=== PATIENT | female | born 1975 | race Caucasian/White ===

== ENCOUNTER → 2022-09-04 13:00 | Outpatient (BNVA) | payer BC, SELFPAY | PROVIDERS: Visit Provider Obstetrics & Gynecology | DX: N93.9 Abnormal uterine and vaginal bleeding, unspecified (principal) | CPT/HCPCS: 80053; 84443; 85025 ==

== ENCOUNTER → 2022-09-24 11:13 | Outpatient (BNVA) | payer BC, SELFPAY | PROVIDERS: Visit Provider Obstetrics & Gynecology | DX: N93.9 Abnormal uterine and vaginal bleeding, unspecified (principal); N85.4 Malposition of uterus | CPT/HCPCS: 76830 ==

== ENCOUNTER → 2022-10-31 12:49 | Day surgery (SDC) | payer BC, SELFPAY ==
--- NOTE | 2022-10-09 12:11 | SUR.PREOP ---
1210 spoke with [facility] and informed her that this pt took phentermine yesterday,stated she would tell dr Harris and inform pt of this also,will have to reschedule pt
[2022-10-30 13:24] VITALS: BMI 34.7
[2022-10-31] VITALS (11 sets, daily range): BP systolic 88–118; BP diastolic 51–67; PULSE 71–88; RESP 12–18; TEMP 36.2–36.3; O2SAT 95–100
[2022-10-31] MEDS: sodium chloride 0.9% 1,000 ML 30 ML IV (13:16)
--- NOTE | 2022-10-31 13:26 | SUR.PREOP ---
patient has nipple rings that she cannot get out, tape applied. anesthesia notified. 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
--- NOTE | 2022-10-31 13:47 | ANES.PREANE2 ---
Pre-Anesthetic Assessment Height/Weight: Height 1.57 m Weight 86.183 kg Temp Pulse Resp BP Pulse Ox O2 Del Method 97.2 F L 81 18 118/67 95 Room Air 10/31/22 13:08 10/31/22 13:08 10/31/22 13:08 10/31/22 13:08 10/31/22 13:08 10/31/22 13:08 Preop Diagnosis: abnormal uterine bleeding Operation Date: 10/31/22 14:45 Proposed Procedures p Hysteroscopy w/ Myosure Hysteroscopy w/ Myosure with Endometrial Sampling, poss Polypectomy(Not Applicable) - Delfino Harris MD s Poylpectomy(Not Applicable) - Delfino Harris MD Familial anesthetic complications: woke up during egd and tried to remove the scope from her throat, woke up twice during foot surgery, told OR crew to put her to sleep because she was in a lot of pain Was Beta Finn taken within 24 hours: N/A Was Clonidine taken within 24 hours: N/A Last intake: Intake Last Liquid Date 10/30/22 Last Liquid Time 22:00 Last Solid Date 10/30/22 Last Solid Time 22:00 Social Tobacco and No alcohol Exam alert, oriented x 3, clear to auscultation bilaterally and regular rate & rhythm Airway Mallampati: Class I Dentition: chipped Anesthetic Plan ASA status: 2 Anesthesia: General Risk of > 500 ml blood loss (7ml/kg in children): No Medications/Allergies Home Medications Medication Instructions Recorded Confirmed Last Taken Type phentermine 37.5 mg capsule 37.5 mg PO DAILY 09/04/22 10/09/22 10/09/22 History trazodone 150 mg tablet 150 mg PO BEDTIME 09/04/22 10/09/22 10/08/22 History Allergies Allergy/AdvReac Type Severity Reaction Status Date / Time No Known Allergies Allergy Verified 09/04/22 13:11 Current Medications Generic Name Dose Route Start Last Admin Trade Name Freq PRN Reason Stop Dose Admin Sodium Chloride 1,000 mls @ 30 mls/hr 10/31/22 13:00 10/31/22 13:16 Sodium Chloride 0.9% IV 11/01/22 12:59 30 mls/hr .Q24H LUCILLE Administration PFSH Anesthesia Family History (Updated 04/05/23 @ 13:14 by Tiffanie Suggs) Grandfather No problems noted. Grandmother Cancer Colon, Pancreatic Denies family history of Diabetes CAD (coronary artery disease) Chronic kidney disease (CKD) Hypertension Stroke Data Anesthesia Cardiac Studies: No Data to Display
--- NOTE | 2022-10-31 14:23 | W.PM.OPSUD ---
Surgery/Procedure H&P Update DATE OF PROCEDURE: October 31, 2022 DATE H&P PERFORMED: 09/04/22 H&P UPDATE INFORMATION: I have reviewed H&P completed within last 30 days, I have examined patient prior to procedure and No changes to prior documentation PREOP DIAGNOSIS: abnormal uterine bleeding PLANNED PROCEDURE: Operation Date: 10/31/22 14:45 Proposed Procedures p Hysteroscopy w/ Myosure Hysteroscopy w/ Myosure with Endometrial Sampling, poss Polypectomy(Not Applicable) - Delfino Harris MD s Poylpectomy(Not Applicable) - Delfino Harris MD
[2022-10-31] MEDS: fentaNYL 50 mcg/mL INJ 2mL IVP (15:20)
--- NOTE | 2022-11-01 04:25 | PM.OP ---
Operative Report Date of procedure: October 31, 2022 Pre-op diagnosis: Preop Diagnosis abnormal uterine bleeding Post-op diagnosis: same Post-op findings: normal endometrial cavity Minimal endometrial tissue No polyps or fibroids Procedure done: hysteroscopy curettage of uterus Specimens removed/disposition: endometrial tissue Surgeon: Delfino Harris MD Anesthesia: MAC Estimated blood loss (mL): 0 Complications: none Brief History: 47 y.o. with abnormal uterine bleeding Procedure: Informed consent signed. Patient taken to the operating room. Anesthesia induced. Patient was placed in dorsolithotomy position, prepped and draped for hysteroscopy. A bivalve speculum was placed in the vagina. The anterior lip of the cervix was grasped with a sharp-toothed tenaculum. The cervix was serially dilated with Hegar dilators. . A hysteroscope was placed into the endometrial cavity. The endometrial cavity was seen to be normal. There were no polyps or fibroids. There was minimal endometrial tissue. The hysteroscope was then removed. Endometrial curettage was done with a sharp curette. Endometrial tissue was sent to pathology. The sharp-toothed tenaculum was removed. There was no bleeding from the endometrial cavity or cervix. The patient was then placed supine and awakened and taken to the PACU. Postop condition: stable EBL: none Sponge and instruments counts were normal x 2 Complications: none
== END | disposition home or self-care (01) ==
PROVIDERS: PCP Obstetrics & Gynecology; Visit Provider Obstetrics & Gynecology
PROC: 0UDB8ZZ Extraction of Endometrium, Via Natural or Artificial Opening Endoscopic (ICD-10-PCS; CPT 58558; principal; 2022-10-31 14:35)
PROC: (CPT 58558; 2022-10-31 14:35)
DX: N93.9 Abnormal uterine and vaginal bleeding, unspecified (principal)
CPT/HCPCS: 58558; 81025; 88305; J1100; J1885; J2250; J2405; J2704; J3010; J7030

== ENCOUNTER 2022-12-12 13:20 | Observation (INO) | payer BC, SELFPAY ==
[2022-12-11 09:02] VITALS: BMI 34.5
[2022-12-12] VITALS (15 sets, daily range): BP systolic 80–109; BP diastolic 44–61; PULSE 67–89; RESP 11–21; TEMP 36.5–36.8; O2SAT 94–99
[2022-12-12 09:49] LABS: OR HCG Qualitative Urine Negative (Negative)
[2022-12-12] MEDS: sodium chloride 0.9% 1,000 ML 30 ML IV (09:50)
--- NOTE | 2022-12-12 10:06 | ANES.PREANE2 ---
Pre-Anesthetic Assessment Height/Weight: Height 1.57 m Weight 85.729 kg Temp Pulse Resp BP Pulse Ox O2 Del Method 97.8 F 82 18 109/44 97 Room Air 12/12/22 09:35 12/12/22 09:35 12/12/22 09:35 12/12/22 09:35 12/12/22 09:35 12/12/22 09:37 Preop Diagnosis: abnormal uterine bleeding Operation Date: 12/12/22 11:00 Proposed Procedures p Total laparoscopic hysterectomy 11907, possible total abdominal hysterectomy 97275,N93.9,N92.1(Not Applicable) - Delfino Harris MD s Total Abdominal Hysterectomy(Not Applicable) - Delfino Harris MD Familial anesthetic complications: None Was Beta Finn taken within 24 hours: N/A Was Clonidine taken within 24 hours: N/A Last intake: Intake Last Liquid Date 12/11/22 Last Liquid Time 23:15 Last Solid Date 12/11/22 Last Solid Time 23:15 Social Tobacco and No alcohol Exam alert, oriented x 3, clear to auscultation bilaterally and regular rate & rhythm Airway Mallampati: Class I Dentition: chipped Anesthetic Plan ASA status: 2 Anesthesia: General Risk of > 500 ml blood loss (7ml/kg in children): No Medications/Allergies Home Medications Medication Instructions Recorded Confirmed Last Taken Type phentermine 37.5 mg capsule 37.5 mg PO DAILY 09/04/22 12/11/22 10/09/22 History trazodone 150 mg tablet 150 mg PO BEDTIME 09/04/22 12/11/22 12/10/22 History Allergies Allergy/AdvReac Type Severity Reaction Status Date / Time No Known Allergies Allergy Verified 11/06/22 08:23 Current Medications Generic Name Dose Route Start Last Admin Trade Name Freq PRN Reason Stop Dose Admin Sodium Chloride 1,000 mls @ 30 mls/hr 12/12/22 09:30 12/12/22 09:50 Sodium Chloride 0.9% IV 12/13/22 09:29 30 mls/hr .Q24H LUCILLE Administration PFSH Anesthesia Family History Grandfather No problems noted. Grandmother Cancer Colon, Pancreatic Denies family history of Diabetes CAD (coronary artery disease) Chronic kidney disease (CKD) Hypertension Stroke Female Reproductive History Date of last menstrual period: 12/10/22 Data Anesthesia 12/12/22 09:50 12/12/22 09:50 Cardiac Studies: No Data to Display
[2022-12-12 10:07] LABS: Basophils # 0.1 10^3/uL (0.0-0.1); Basophils % 0.7 %; Eosinophils # 0.2 10^3/uL (0.0-0.8); Eosinophils % 2.5 %; Hematocrit 41.4 % (37.0-47.0); Hemoglobin 13.9 g/dL (11.5-15.3); Lymphocytes # 1.7 10^3/uL (0.8-4.8); Lymphocytes % 19.6 %; Mean Corpuscular HGB Conc 33.6 g/dL (30.0-36.0); Mean Corpuscular Hemoglobin 32.3 pg (28.0-34.0); Mean Corpuscular Volume 96.1 fl (81-99); Monocytes # 0.5 10^3/uL (0.2-0.9); Monocytes % 5.8 %; Neutrophils # 6.04 10^3/uL (1.8-7.7); Nucleated Red Blood Cells % 0 %; Platelet Count 271 10^3/cmm (130-400); Red Blood Count 4.31 10^6/uL (4.1-5.3); Red Cell Distribution Width 13.6 % (12.1-15.1); White Blood Count 8.5 10^3/uL (4.0-10.0)
[2022-12-12] MEDS: scopolamine 1.5 Patch 1 PATCH TRANSDERMA (10:29)
[2022-12-12] MEDS: ceFAZolin 2,000 MG in sodium chloride 0.9% (plus) 50 ML 100 MG IV (11:04)
--- NOTE | 2022-12-12 11:04 | W.PM.OPSUD ---
Surgery/Procedure H&P Update DATE OF PROCEDURE: December 12, 2022 DATE H&P PERFORMED: 12/11/22 H&P UPDATE INFORMATION: I have reviewed H&P completed within last 30 days, I have examined patient prior to procedure and No changes to prior documentation PREOP DIAGNOSIS: abnormal uterine bleeding PLANNED PROCEDURE: Operation Date: 12/12/22 11:00 Proposed Procedures p Total laparoscopic hysterectomy 04539, possible total abdominal hysterectomy 84341,N93.9,N92.1(Not Applicable) - Delfino Harris MD s Total Abdominal Hysterectomy(Not Applicable) - Delfino Harris MD
[2022-12-12] MEDS: lidocaine-epi 2% 20 mL INJ INJECTION (12:27)
[2022-12-12] MEDS: HYDROcodone-acetaminophen 5-325 mg Tablet PO ×2 (14:30→20:33)
[2022-12-12] MEDS: phenazopyridine 100 mg Tablet 200 MG PO (14:34)
[2022-12-12] MEDS: hyDROXYzine 25 mg Capsule 50 MG PO (15:23)
[2022-12-12] MEDS: morphine 4 mg/mL SDV 1 mL IVP (15:24)
[2022-12-12] MEDS: ketorolac 30 mg/mL INJ IVP ×2 (17:26→22:52)
[2022-12-12] MEDS: docusate sodium 100 mg Capsule PO (17:26)
[2022-12-12] MEDS: simethicone 80 mg Chew PO (20:35)
[2022-12-12] MEDS: trazodone 150 mg Tablet PO (21:13)
--- NOTE | 2022-12-12 21:50 | P.OP_ITS ---
Operative Report Date of procedure: December 12, 2022 Pre-op diagnosis: Preop Diagnosis abnormal uterine bleeding Post-op diagnosis: same Post-op findings: normal uterus, tubes, and ovaries Procedure done: laparoscopic-assisted vaginal hysterectomy Specimens removed/disposition: uterus Surgeon: Kendrick Ryan MD Family Program Specialist: Delfino Harris MD Anesthesia: General Estimated blood loss (mL): 50 Complications: none Condition: stable Disposition: PACU Brief History: 47 y.o. with abnormal uterine bleeding Procedure: Informed consent obtained. The patient was taken to the operating room where general endotracheal anesthesia was given.? She was placed in dorsolithotomy position with legs in the Femi stirrups.? The patient was prepped and draped in the usual sterile fashion.? A bivalve speculum was placed.? A [employer] uterine manipulator was placed.? A nunez catheter was placed and secured. Attention was then focused to the abdomen.? A 5 mm incision was made in the umbilicus.? A Veress needle was placed into the abdomen.? After confirming entry into the abdomen using the saline drop test, pneumoperitoneum was achieved.? A laparoscope was then placed into the abdominal cavity.? Three other 5 mm incisions were made, one in suprapubic region and two in the left and right lower abdominal quadrants.? Laparoscopic sheaths were placed.? The pelvis was then explored using the laparoscope.? Normal uterus, tubes and ovaries were seen, as were pelvic sidewalls and cul-de-sacs. The Enseal device was used throughout for vessel sealing.? The uteroovarian vessels were doubly sealed and divided.? The incision was carried to the round ligament.? The round ligaments were divided along the midpoint along its course.? On either side, the broad ligaments were developed and the anterior and posterior leaves were incised and divided.? The uterine vessels were divided at the level of the internal cervical os.? Following this, the vaginal approach to the hysterectomy was begun.? This portion of the surgery will be dictated by Dr. Ryan. After the vaginal portion of the hysterectomy,? the pneumoperitoneum was again achieved.? The laparoscope was used to examine the pelvis.? No bleeding was seen.? All instruments were then removed from the abdomen after the pneumoperitoneum was allowed to escape.? The laparoscopic incisions were then re-approximated using 4-O Monocryl and dermabond The patient was then placed supine, awakened, and taken the recovery room Postoperative condition:? stable Complications:?? none EBL:? 50 cc Sponge, needles, and instrument counts correct x two
[2022-12-12] MEDS: dextrose 5%-lactated ringers 1,000 ML 125 ML IV (22:53)
[2022-12-13] MEDS: ketorolac 30 mg/mL INJ IVP (04:54)
[2022-12-13 05:20] LABS: Hematocrit 32.9 % (37.0-47.0); Hemoglobin 10.7 g/dL (11.5-15.3); Mean Corpuscular HGB Conc 32.5 g/dL (30.0-36.0); Mean Corpuscular Hemoglobin 31.7 pg (28.0-34.0); Mean Corpuscular Volume 97.3 fl (81-99); Mean Platelet Volume 11.1 fL (7.4-10.4); Platelet Count 222 10^3/cmm (130-400); Red Blood Count 3.38 10^6/uL (4.1-5.3); Red Cell Distribution Width 13.4 % (12.1-15.1); White Blood Count 11.4 10^3/uL (4.0-10.0)
[2022-12-13 05:22] VITALS: BP 85/80; PULSE 58; RESP 15; TEMP 36.7; O2SAT 96
[2022-12-13] MEDS: ibuprofen 800 mg tablet PO (10:33)
[2022-12-13] MEDS: docusate sodium 100 mg Capsule PO (10:33)
[2022-12-13 10:40] VITALS: BP 85/46; PULSE 87; RESP 15; TEMP 36.6
[2022-12-13] MEDS: simethicone 80 mg Chew PO (10:41)
[2022-12-13] MEDS: HYDROcodone-acetaminophen 5-325 mg Tablet PO (11:51)
[2022-12-13 12:05] VITALS: BP 85/46; PULSE 87; RESP 15; TEMP 36.6
--- NOTE | 2022-12-13 13:10 | PM.OBGYPN ---
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 Lsc wounds clean and dry Ext: normal Urinary Catheter Management: Claros: Cath Placed During This Visit: yes, but has since been removed by the nurse Reason for Continuing Indwelling Catheter: Decision to DC Catheter Urinary Catheter Date of Insertion: 12/12/22 Urinary Catheter Time of Insertion: 11:36 Date Urinary Catheter Removed: 12/12/22 Time Urinary Catheter Discontinued: 15:00 Data 12/13/22 05:11 12/12/22 09:50 A&P Assessment and plan (1) Encounter for postoperative care: Plan POD #1 LAVH Doing well Plan discharge home today F/U in one week Attestations Medical Necessity Statement*: patient POD #1 hysterectomy, plan discharge to home today Coding Level of Care Code Acute Code for Chg Fwd Diagnoses Encounter for postoperative care Z48.89 Time Spent (min) 20
--- NOTE | 2022-12-13 13:13 | PM.OBGYDC ---
Discharge Providers [facility] Date of Admission: 12/12/22 13:20 Date of Discharge: 12/13/22 Attending Provider at Admission: Delfino Harris MD Attending Provider at Discharge: Delfino Harris MD Primary [facility]: Delfino Harris MD Primary Care Provider: Jenny Sesay APRN Diagnoses at Discharge Discharge Diagnosis (1) Encounter for postoperative care: Details from hospital stay: patient underwent laparoscopic-assisted vaginal hysterectomy December 12, 2022 doing well postop has been afebrile, eating, voiding, ambulating well Status: Acute Reason for Visit Reason for Visit: 30695 [id number] N93.9 Hospital Course Hospital Course patient did well post-[facility] Physical Exam Const: COMMON NORMALS: no acute distress, patient oriented x3 and alert Resp: COMMON NORMALS: normal respiratory effort and clear to auscultation bilaterally AUSCULTATION: clear to auscultation bilaterally GI: COMMON NORMALS: Normal to inspection, nondistended, normoactive bowel sounds present, Soft to palpation and non-tender PALPATION: Yes Soft to palpation Neuro: COMMON NORMALS: patient oriented x3 SENSORIUM/ORIENTATION: Yes alert Urinary Catheter Management: Claros: Cath Placed During This Visit: yes, but has since been removed by the nurse Reason for Continuing Indwelling Catheter: Decision to DC Catheter Urinary Catheter Date of Insertion: 12/12/22 Urinary Catheter Time of Insertion: 11:36 Date Urinary Catheter Removed: 12/12/22 Time Urinary Catheter Discontinued: 15:00 History History History 4 Term 4 0 Miscarriages/Ectopic 0 Living Children 4 Discharge Data Studies Completed and Pending Pending at discharge Category Date Time Status Pathology: Surgical [PTH] Routine Pth 12/12/22 13:41 Received Laboratory Results WBC 11.4 10^3/uL (4.0-10.0) H 12/13/22 05:11 RBC 3.38 10^6/uL (4.1-5.3) L 12/13/22 05:11 Hgb 10.7 g/dL (11.5-15.3) L 12/13/22 05:11 Hct 32.9 % (37.0-47.0) L 12/13/22 05:11 MCV 97.3 fl (81-99) 12/13/22 05:11 MCH 31.7 pg (28.0-34.0) 12/13/22 05:11 MCHC 32.5 g/dL (30.0-36.0) 12/13/22 05:11 RDW 13.4 % (12.1-15.1) 12/13/22 05:11 Plt Count 222 10^3/cmm (130-400) 12/13/22 05:11 MPV 11.1 fL (7.4-10.4) H 12/13/22 05:11 Neut % (Auto) 71.0 % 12/12/22 09:50 Lymph % (Auto) 19.6 % 12/12/22 09:50 [place] % (Auto) 5.8 % 12/12/22 09:50 Eos % (Auto) 2.5 % 12/12/22 09:50 Baso % (Auto) 0.7 % 12/12/22 09:50 Neut # (Auto) 6.04 10^3/uL (1.8-7.7) 12/12/22 09:50 Lymph # (Auto) 1.7 10^3/uL (0.8-4.8) 12/12/22 09:50 [place] # (Auto) 0.5 10^3/uL (0.2-0.9) 12/12/22 09:50 Eos # (Auto) 0.2 10^3/uL (0.0-0.8) 12/12/22 09:50 Baso # (Auto) 0.1 10^3/uL (0.0-0.1) 12/12/22 09:50 Nucleated RBC % (auto) 0 % 12/12/22 09:50 Nucleated RBCs # 0.0 /100WBC 12/12/22 09:50 Sodium Cancelled 12/12/22 09:50 Potassium Cancelled 12/12/22 09:50 Chloride Cancelled 12/12/22 09:50 Carbon Dioxide Cancelled 12/12/22 09:50 Anion Gap Cancelled 12/12/22 09:50 BUN Cancelled 12/12/22 09:50 Creatinine Cancelled 12/12/22 09:50 GFR Calculation Cancelled 12/12/22 09:50 Glucose Cancelled 12/12/22 09:50 Calculated Osmolality Cancelled 12/12/22 09:50 Calcium Cancelled 12/12/22 09:50 Total Bilirubin Cancelled 12/12/22 09:50 AST Cancelled 12/12/22 09:50 ALT Cancelled 12/12/22 09:50 Alkaline Phosphatase Cancelled 12/12/22 09:50 Total Protein Cancelled 12/12/22 09:50 Albumin Cancelled 12/12/22 09:50 Globulin Cancelled 12/12/22 09:50 Urine HCG, Qual Negative (Negative) 12/12/22 09:43 Blood Type A Positive 12/12/22 09:50 Rho(D) Type Positive 12/12/22 09:50 Antibody Screen Negative 12/12/22 09:50 Procedures Performed laparoscopic-assisted vaginal hysterectomy Vitals Last Vital Signs Temp 97.8 F 12/13/22 12:05 Pulse 87 12/13/22 12:05 Resp 15 12/13/22 12:05 BP 85/46 12/13/22 12:05 Pulse Ox 96 12/13/22 05:22 O2 Del Method Room Air 12/13/22 10:40 Discharge Plan Discharge Patient Disposition: Home Condition: Stable Prescriptions: New Percocet 7.5-325 mg tablet 1 tab PO Q8H PRN (Reason: pain) Qty: 30 0RF Continued trazodone 150 mg tablet 150 mg PO BEDTIME phentermine 37.5 mg capsule 37.5 mg PO DAILY Rx Instructions: must administer 30 minutes before or 1-2 hours after breakfast Discharge Orders: Discharge Order (Routine); Ordered 12/13/22 Ordered By: Delfino Harris Referrals: Delfino Harris MD [Physician] - 12/18/22 12:45 pm Discharge Diet: Usual diet Discharge Activity: Increase activity as tolerated Patient Instructions: Laparoscopic Hysterectomy (GEN), OB Abdominal Surgery - [facility], OB Discharge Report, Opioid Safety Activity Restrictions/Additional Instructions: call Dr. Harris at cell: [phone] if problems Discharge Attestations [facility] Time Spent in Discharge Care*: less than 30 min Coding Level of Care Code Acute Code for Chg Fwd Diagnoses Encounter for postoperative care Z48.89 Time Spent (min) 20
== END 2022-12-13 12:08 | disposition home or self-care (01) ==
LOC: OBGYN 13:21
PROVIDERS: Admitting Provider Obstetrics & Gynecology; PCP Family Medicine; Visit Provider Obstetrics & Gynecology
PROC: 0UT9FZZ Resection of Uterus, Via Natural or Artificial Opening With Percutaneous Endoscopic Assistance (ICD-10-PCS; CPT 58550; principal; 2022-12-12 11:00)
DX: N93.9 Abnormal uterine and vaginal bleeding, unspecified (principal)
CPT/HCPCS: 58550; 36415; 81025; 84703; 85025; 85027; 86850; 86900; 88307; 96374; 96376; G0378; J0690; J1100; J1170; J1200; J1885; J2250; J2270; J2405; J2704; J2710; J3010; J3490; J7030; J7121; Q9968